=== PATIENT | female | born 1985 | race Two or more races ===

== ENCOUNTER 2024-09-20 11:18 | Emergency (ER) | payer BC, SELFPAY ==
[2024-09-20 11:33] VITALS: BP 128/81; PULSE 83; RESP 20; TEMP 36.6; O2SAT 99
[2024-09-20 12:35] VITALS: PULSE 108; RESP 20; O2SAT 100; BMI 21.9
--- NOTE | 2024-09-20 12:38 | EDNOTE_ITS ---
ED General RME/HPI General Stated complaint: ANXIETY Time Seen by Provider: 09/20/24 12:20 Arrival date/time: 09/20/24 11:18 RME / HPI RME / HPI narrative: 39-year-old female patient with significant history of anxiety in the past, at least 3 years now, currently taking Lexapro Wellbutrin and Valium, came in for evaluation regarding worsening panic attack. Onset of symptoms about 10 AM this morning, described as hyperventilation, panicky, muscle spasm carpopedal spasm, bilateral, severity moderate. Patient took her Valium with no relief. Patient denies any homicidal or suicidal ideation. Related Data Home Medications ?Medication ?Instructions ?Recorded ?Confirmed escitalopram oxalate 10 mg tablet 20 mg PO QDAY 02/01/19 12/04/23 (Lexapro) bupropion HCl 150 mg 24 hr tablet, 150 mg PO QDAY 12/04/23 12/05/23 extended release dicyclomine 20 mg tablet 20 mg PO TID 12/04/23 12/04/23 Previous Rx's ?Medication ?Instructions ?Recorded pantoprazole 40 mg tablet,delayed 40 mg PO QDAY #30 tabs 12/05/23 release (Protonix) ondansetron HCl 4 mg tablet 4 mg PO Q8H PRN nausea and 09/20/24 vomiting 5 days #20 tabs Allergies Allergy/AdvReac Type Severity Reaction Status Date / Time No Known Allergies Allergy Verified 06/26/24 07:38 Review of Systems Review of Systems Narrative Review of Systems: Review of system reviewed and within normal limits except mentioned in HPI ED Exam Narrative Physical exam: VITAL SIGNS: Reviewed. GENERAL APPEARANCE: Alert and interactive, follows commands, no acute distress, anxious HEAD AND FACE: Non-traumatic. ENT: PERRL, pink conjunctivitis, eyelid no trauma, Mucous membrane moist. NECK: Supple, nontender, no nuchal rigidity. CHEST: No tenderness, no crepitus, no paradoxical movement, no retractions. LUNGS: Clear, well ventilated, symmetric, no rales, no wheezing, no ronchi, no stridor, good breath sounds bilaterally. HEART: Regular rate, regular rhythm, no murmur, no gallops. ABDOMEN: Soft, positive bowel sounds, nondistended, no guarding, nontender, no rebound, no masses, RECTAL: Deferred. GENITAL: Deferred. NEUROLOGICAL: Gross motor function intact sensory function intact, Appropriate for age. MUSCULOSKELETAL: low back nontender, full range of motion. EXTREMITIES: Carpopedal spasm noted bilateral SKIN: Color pink, dry, no rash, no lacerations, no abrasions, no contusions. LYMPHATICS: Deferred. Course Quality Measures none Orders Category Date Time Status EKG (ED ONLY) *Do not use* NOW Care 09/20/24 13:35 Completed EKG (ED Only) Stat Exams 09/20/24 13:35 Ordered CBC [CBC] Stat Lab 09/20/24 12:45 Completed CMP [Comprehensive Metabolic Panel] Stat Lab 09/20/24 12:45 Completed DiphenhydrAMINE [Benadryl] Med 09/20/24 12:37 Discontinued 50 mg PO X1 ONE Ketorolac Inj [Toradol Inj] Med 09/20/24 13:59 Discontinued 30 mg IM X1 ONE LORazepam [Ativan Inj] Med 09/20/24 12:37 Discontinued 1 mg IM X1 ONE Ondansetron Odt [Zofran Odt] Med 09/20/24 13:35 Discontinued 4 mg PO X1 ONE Ondansetron Odt [Zofran Odt] Med 09/20/24 14:03 Discontinued 4 mg PO X1 ONE Vital Signs Vital signs: Vital Signs Temperature 97.9 F 09/20/24 11:33 Pulse Rate 83 09/20/24 11:33 Respiratory Rate 20 09/20/24 11:33 Blood Pressure 128/81 09/20/24 11:33 Pulse Oximetry (%) 99 09/20/24 11:33 Oxygen Delivery Method Room Air 09/20/24 11:33 [facility] Patient data External records reviewed:: None Clinical information provided by:: patient Social determinants that could affect healthcare access:: none Patient has the following chronic illnesses:: History anxiety How is presenting disease/condition affected by chronic disease/condition?: e xacerbated by Evaluation data The following diagnostics were reviewed and interpreted by me:: lab results and EKG tracing(s) Lab and/or radiology exams considered but not ordered:: None Interpretation Summary: EKG as interpreted by me showed sinus rhythm, ventricular rate of 73 bpm, no ST segment elevation or depression noted. Patient's workup today came back unremarkable. Medications Medications considered but not ordered:: None Medication administrations:: Medication Administration History Discontinued Medications Diphenhydramine HCl (Diphenhydramine 25 Mg Capsule) 50 mg PO X1 ONE Stop: 09/20/24 12:38 Last Admin: 09/20/24 13:10 Dose: 50 mg Documented By: ZELDA Ketorolac Tromethamine (Ketorolac Inj 60 Mg/2 Ml Vial) 30 mg IM X1 ONE Stop: 09/20/24 14:00 Last Admin: 09/20/24 14:27 Dose: 30 mg Documented By: ZELDA Lorazepam (Lorazepam 2 Mg/Ml Vial) 1 mg IM X1 ONE Stop: 09/20/24 12:38 Last Admin: 09/20/24 13:10 Dose: 1 mg Documented By: ZELDA Ondansetron HCl (Ondansetron Odt 4 Mg Tabrap) 4 mg PO X1 ONE; Protocol Stop: 09/20/24 13:36 Last Admin: 09/20/24 14:29 Dose: Not Given Documented By: ZELDA Non-Admin Reason: Discontinued Ondansetron HCl (Ondansetron Odt 4 Mg Tabrap) 4 mg PO X1 ONE; Protocol Stop: 09/20/24 14:04 Last Admin: 09/20/24 14:27 Dose: 4 mg Documented By: ZELDA Ativan, Zofran, Toradol and Benadryl Consultations Consultation(s) initiated? (list below): No Diagnosis Differential Diagnosis ED Complaint MDM: Panic attack, hyperventilation, body aches Most likely diagnosis given after review of the tests above:: Panic attack, anxiety Admission Indicated Admission indicated?: not indicated Explain why admission is indicated or not indicated:: Stable Admission Request Was there a request for admission?: No Disposition Plan Disposition Plan: Discharge Discharge Attestation Discharge Attestation: The patient wasgiven an opportunity to ask questions and understood the discharge instructions. Discharge instructions specifically effects, indications for sooner follow up or return to the emergency department, and the expected course of current diagnosis. Patient condition: Stable Medical Decision Making MDM Narrative MDM Narrative: 39-year-old female patient with significant history of anxiety in the past, at least 3 years now, currently taking Lexapro Wellbutrin and Valium, came in for evaluation regarding worsening panic attack. Onset of symptoms about 10 AM this morning, described as hyperventilation, panicky, muscle spasm carpopedal spasm, bilateral, severity moderate. Patient took her Valium with no relief. Patient denies any homicidal or suicidal ideation. Patient was given Zofran, Toradol, and Ativan with complete resolution of symptoms. Patient's workup all came back unremarkable. EKG also came back unremarkable results discussed with the patient. Differential Diagnosis Differential Diagnosis: Panic attack, hyperventilation, body aches Lab Data 09/20/24 12:45 09/20/24 12:45 Labs: Lab Results 09/20/24 Range/Units 12:45 WBC 12.7 H (3.6-11.0) Thou/mm3 RBC 4.50 (4.00-5.20) Miln/mm3 Hgb 15.0 (12.0-16.0) g/dL Hct 41.1 (36.0-46.0) % MCV 91 (80-100) fL MCH 33.3 (25.0-35.0) pg MCHC 36.5 (31.0-37.0) g/dl RDW Std Deviation 40.7 (36.4-46.3) fL Plt Count 400 (140-440) Thou/mm3 Neut % (Auto) 90 H (37-80) % Lymph % (Auto) 6 L (10-50) % Orange % (Auto) 3 (0-12) % Eos % (Auto) 0 (0-10) % Baso % (Auto) 0 (0-2.5) % Neut # (Auto) 11.5 H (1.8-7.7) Thou/mm3 Lymph # (Auto) 0.8 L (1.0-4.8) Thou/mm3 Orange # (Auto) 0.4 (0.0-0.8) Thou/mm3 Eos # (Auto) 0.0 (0.0-0.5) Thou/mm3 Baso # (Auto) 0.0 (0.0-0.2) Thou/mm3 Immature Gran # (Auto) 0.04 H (0.00-0.00) Thou/mm3 Absolute Nucleated RBC 0.00 (0.00-0.00) Thou/mm3 Immature Gran % 0 (0-0) % Nucleated RBC % 0 (0) /100 WBC Sodium 138 (136-145) mMol/L Potassium 3.5 (3.4-5.1) mMol/L Chloride 105 (98-107) mMol/L Carbon Dioxide 15.6 L (20.0-31.0) mMol/L Anion Gap 17 H (7-16) BUN 11 (9-23) mg/dL Creatinine 0.8 (0.6-1.3) mg/dL Estim Creat Clear Calc Not Performed. eGFR > 60 (60 - ) See Note BUN/Creatinine Ratio 14 (12-20) Ratio Glucose 121 H (74-106) mg/dL Calculated Osmolality 276 (275-295) Calcium 9.8 (8.3-10.6) mg/dL Corrected Calcium 9.8 (8.5-10.1) mg/dL Total Bilirubin 1.0 (0.3-1.2) mg/dL AST 13 (0-34) U/L ALT 16 (10-49) U/L Alkaline Phosphatase 115 (46-116) U/L Total Protein 8.0 (5.7-8.2) gm/dL Albumin 5.0 (3.5-5.0) gm/dL Globulin 3.0 (2.3-3.5) gm/dL Albumin/Globulin Ratio 1.7 (1.2-2.2) Discharge Plan Plan Patient Disposition: HOME (Self Care) Disposition Comment: Stable Prescriptions/Referrals Prescriptions/Med Rec: New ondansetron HCl 4 mg tablet 4 mg PO Q8H PRN (Reason: nausea and vomiting) 5 Days Qty: 20 0RF No Action escitalopram oxalate [Lexapro] 10 mg Tablet 20 mg PO QDAY dicyclomine 20 mg tablet 20 mg PO TID Patient Comments: TAKE 1 TABLET BY MOUTH 3 TIMES A DAY BEFORE MEALS bupropion HCl 150 mg tablet extended release 24 hr 150 mg PO QDAY Patient Comments: TAKE 1 TABLET BY MOUTH EVERY DAY pantoprazole [Protonix] 40 mg Tablet,Delayed Release (Dr/Ec) 40 mg PO QDAY Qty: 30 2RF Rx Instructions: TAKE ONE TABLET ONCE DAILY FOR 30 DAYS Referrals: Velasquez Dyer MD [Primary Care Provider] - In 1 week Problem List Clinical Impression: Anxiety Patient/Caregiver Discharge Instructions Discharge Activity: activity as tolerated Education Materials: Understanding Anxiety Disorders Additional Instructions: Thank you for the opportunity for serving you today. You are stable for discharged . You are advised to: Follow-up with your PCP in 1 to 2 days Return to ED for worsening of symptoms Increase oral fluids Take medication as prescribed by your PCP Print Language: Bruneian Stand Alone Forms: Yelena Award Info., Patient Portal Info Letter PA/QUALITY CONTROL SPECIALIST Supervising Physician SONU/CAMILLA Supervising Physician: MD preethi
[2024-09-20 12:57] LABS: Basophils % (Auto) 0 % (0-2.5); Eosinophils % (Auto) 0 % (0-10); Hematocrit 41.1 % (36.0-46.0); Immature Granulocytes % (Auto) 0 % (0-0); Immature Granulocytes Auto 0.04 Thou/mm3 (0.00-0.00); Lymphocytes # (Auto) 0.8 Thou/mm3 (1.0-4.8); Lymphocytes % (Auto) 6 % (10-50); Mean Corpuscular HGB Conc 36.5 g/dl (31.0-37.0); Mean Corpuscular Hemoglobin 33.3 pg (25.0-35.0); Mean Corpuscular Volume 91 fL (80-100); Monocytes # (Auto) 0.4 Thou/mm3 (0.0-0.8); Monocytes % (Auto) 3 % (0-12); Neutrophils # (Auto) 11.5 Thou/mm3 (1.8-7.7); Neutrophils % (Auto) 90 % (37-80); Nucleated Red Blood Cell % 0 /100 WBC (0); Platelet Count 400 Thou/mm3 (140-440); RDW Standard Deviation 40.7 fL (36.4-46.3); White Blood Count 12.7 Thou/mm3 (3.6-11.0)
[2024-09-20] MEDS: DiphenhydrAMINE 25 MG CAPSULE 50 MG PO (13:10)
[2024-09-20] MEDS: LORazepam 2 MG/ML VIAL 1 MG IM (13:10)
[2024-09-20 13:16] LABS: Alanine Aminotransferase 16 U/L (10-49); Albumin/Globulin Ratio 1.7 (1.2-2.2); Alkaline Phosphatase 115 U/L (46-116); Anion Gap 17 (7-16); Aspartate Amino Transferase 13 U/L (0-34); BUN/Creatinine Ratio 14 Ratio (12-20); Blood Urea Nitrogen 11 mg/dL (9-23); Calcium 9.8 mg/dL (8.3-10.6); Calcium (Corrected) 9.8 mg/dL (8.5-10.1); Carbon Dioxide 15.6 mMol/L (20.0-31.0); Chloride 105 mMol/L (98-107); Creatinine (Component) 0.8 mg/dL (0.6-1.3); Glucose 121 mg/dL (74-106); Osmolality,Calculated 276 (275-295); Potassium 3.5 mMol/L (3.4-5.1); Sodium 138 mMol/L (136-145); eGFR > 60 See Note
[2024-09-20] MEDS: ONDANSETRON ODT 4 MG TABRAP PO (14:27)
[2024-09-20] MEDS: KETOROLAC INJ 60 MG/2 ML VIAL 30 MG IM (14:27)
[2024-09-20 14:54] VITALS: BP 135/81; PULSE 73; RESP 20; TEMP 36.5; O2SAT 100
[2024-09-20] MEDS: MORPHINE SULF INJ 10 MG/ML VIAL 5 MG IM (15:16)
== END 2024-09-20 15:35 | disposition home or self-care (01) ==
PROVIDERS: Nurse Practitioner Family; Emergency Provider Emergency Medicine; PCP Family Medicine
DX: F41.9 Anxiety disorder, unspecified (principal); I49.3 Ventricular premature depolarization
CPT/HCPCS: 36415; 80053; 85025; 93005; 96372; 99283; J1885; J2060; J2270; Q0162; A9270

== ENCOUNTER 2024-11-01 17:38 | Emergency (ER) | payer BC, SELFPAY ==
[2024-11-01 17:43] VITALS: BP 144/88; PULSE 87; RESP 20; TEMP 36.6; O2SAT 100; BMI 23.0
[2024-11-01] MEDS: ONDANSETRON INJ 2 MG/ML INJ 2 ML 4 MG IV (18:29)
--- NOTE | 2024-11-01 18:39 | EKG_ITS ---
[facility] Test Date: 2024-11-01 Pat Name: BETHEL TANNER Department: Room: - Gender: Female Credit And Collections Analyst: : 1985 Requested By: Viry Wyatt Order Number: [id number] Reading MD: Viry Wyatt Measurements Intervals [place] Rate: 96 P: 70 [place]: 122 QRS: 40 QRSD: 87 T: -3 QT: 412 QTc: 521 Interpretive Statements SINUS RHYTHM WITH SINUS ARRHYTHMIA MODERATE T-WAVE ABNORMALITY, CONSIDER ANTERIOR ISCHEMIA [-0.1+ mV T WAVE IN V3/V4] Compared to ECG 04/27/2023 05:30:37 No significant changes /store/S0/[id number]/ecg/[id number].pdf
[2024-11-01] MEDS: HALOPERIDOL LACT INJ 5 MG/ML VIAL IM (18:47)
[2024-11-01] MEDS: DiphenhydrAMINE INJ 50 MG/ML VIAL IVP (18:48)
--- NOTE | 2024-11-01 18:54 | PD.EDSEIZ ---
ED Seizures RME/HPI General Chief Complaint: Seizure Stated Complaint: SEIZURE Time Seen by Provider: 11/01/24 18:44 Arrival date/time: 11/01/24 17:38 Related Data Home Medications ?Medication ?Instructions ?Recorded ?Confirmed escitalopram oxalate 10 mg tablet 20 mg PO QDAY 02/01/19 12/04/23 (Lexapro) bupropion HCl 150 mg 24 hr tablet, 150 mg PO QDAY 12/04/23 12/05/23 extended release dicyclomine 20 mg tablet 20 mg PO TID 12/04/23 12/04/23 Previous Rx's ?Medication ?Instructions ?Recorded pantoprazole 40 mg tablet,delayed 40 mg PO QDAY #30 tabs 12/05/23 release (Protonix) Allergies Allergy/AdvReac Type Severity Reaction Status Date / Time No Known Allergies Allergy Verified 06/26/24 07:38 Course Orders Category Date Time Status EKG (ED ONLY) *Do not use* NOW Care 11/01/24 18:41 Completed EKG (ED Only) Stat Exams 11/01/24 18:39 Ordered CBC Stat Lab 11/01/24 18:40 Ordered CMP [Comprehensive Metabolic Panel] Stat Lab 11/01/24 18:40 Ordered Lipase Stat Lab 11/01/24 18:40 Ordered UA, C/S IF [Urinalysis, C/S if Indicated] Stat Lab 11/01/24 18:40 Ordered DiphenhydrAMINE INJ [Benadryl Inj] Med 11/01/24 18:42 Discontinued 50 mg IVP X1 ONE Haloperidol Lactate [Haldol Inj] Med 11/01/24 18:42 Discontinued 5 mg IM X1 ONE Ondansetron Inj [Zofran Inj] Med 11/01/24 18:23 Discontinued 4 mg IV X1 ONE Vital Signs Vital signs: Vital Signs Temperature 97.8 F 11/01/24 17:43 Pulse Rate 87 11/01/24 17:43 Respiratory Rate 20 11/01/24 17:43 Blood Pressure 144/88 H 11/01/24 17:43 Pulse Oximetry (%) 100 11/01/24 17:43 Oxygen Delivery Method Room Air 11/01/24 17:43 Seizure Medications / Prescriptions Medication administrations:: Medication Administration History Discontinued Medications Diphenhydramine HCl (Diphenhydramine Inj 50 Mg/Ml Vial) 50 mg IVP X1 ONE Stop: 11/01/24 18:43 Last Admin: 11/01/24 18:48 Dose: 50 mg Documented By: DEJA Haloperidol Lactate (Haloperidol Lact Inj 5 Mg/Ml Vial) 5 mg IM X1 ONE Stop: 11/01/24 18:43 Last Admin: 11/01/24 18:47 Dose: 5 mg Documented By: DEJA Ondansetron HCl (Ondansetron Inj 2 Mg/Ml Inj 2 Ml) 4 mg IV X1 ONE; Protocol Stop: 11/01/24 18:24 Last Admin: 11/01/24 18:29 Dose: 4 mg Documented By: DEJA Discharge Plan Prescriptions/Referrals Prescriptions/Med Rec: No Action escitalopram oxalate [Lexapro] 10 mg Tablet 20 mg PO QDAY dicyclomine 20 mg tablet 20 mg PO TID Patient Comments: TAKE 1 TABLET BY MOUTH 3 TIMES A DAY BEFORE MEALS bupropion HCl 150 mg tablet extended release 24 hr 150 mg PO QDAY Patient Comments: TAKE 1 TABLET BY MOUTH EVERY DAY pantoprazole [Protonix] 40 mg Tablet,Delayed Release (Dr/Ec) 40 mg PO QDAY Qty: 30 2RF Rx Instructions: TAKE ONE TABLET ONCE DAILY FOR 30 DAYS Patient/Caregiver Discharge Instructions Print Language: Turkmen
[2024-11-01 19:15] LABS: Basophils # (Auto) 0.1 Thou/mm3 (0.0-0.2); Basophils % (Auto) 0 % (0-2.5); Eosinophils % (Auto) 0 % (0-10); Hematocrit 40.7 % (36.0-46.0); Hemoglobin 14.6 g/dL (12.0-16.0); Immature Granulocytes % (Auto) 0 % (0-0); Immature Granulocytes Auto 0.07 Thou/mm3 (0.00-0.00); Lymphocytes # (Auto) 0.9 Thou/mm3 (1.0-4.8); Lymphocytes % (Auto) 6 % (10-50); Mean Corpuscular HGB Conc 35.9 g/dl (31.0-37.0); Mean Corpuscular Hemoglobin 32.6 pg (25.0-35.0); Mean Corpuscular Volume 91 fL (80-100); Monocytes # (Auto) 0.4 Thou/mm3 (0.0-0.8); Monocytes % (Auto) 3 % (0-12); Neutrophils # (Auto) 14.6 Thou/mm3 (1.8-7.7); Neutrophils % (Auto) 91 % (37-80); Nucleated Red Blood Cell % 0 /100 WBC (0); Platelet Count 390 Thou/mm3 (140-440); RDW Standard Deviation 40.9 fL (36.4-46.3); Red Blood Count 4.48 Miln/mm3 (4.00-5.20)
[2024-11-01 19:31] LABS: Alanine Aminotransferase 31 U/L (10-49); Albumin, Serum 5.1 gm/dL (3.5-5.0); Albumin/Globulin Ratio 1.8 (1.2-2.2); Alkaline Phosphatase 113 U/L (46-116); Anion Gap 20 (7-16); Aspartate Amino Transferase 23 U/L (0-34); BUN/Creatinine Ratio 11 Ratio (12-20); Blood Urea Nitrogen 10 mg/dL (9-23); Calcium 10.6 mg/dL (8.3-10.6); Calcium (Corrected) 10.6 mg/dL (8.5-10.1); Carbon Dioxide 15.3 mMol/L (20.0-31.0); Chloride 102 mMol/L (98-107); Creatinine (Component) 0.9 mg/dL (0.6-1.3); Estimated Creatinine Clearance 70.8 mL/min (>60); Globulin 2.9 gm/dL (2.3-3.5); Glucose 137 mg/dL (74-106); Lipase 29 U/L (12-53); Osmolality,Calculated 274 (275-295); Potassium 3.8 mMol/L (3.4-5.1); Sodium 137 mMol/L (136-145); eGFR > 60 See Note
--- NOTE | 2024-11-01 19:57 | PD.EDPSYCH ---
ED Psych RME/HPI General Chief Complaint: Seizure Stated Complaint: SEIZURE Time Seen by Provider: 11/01/24 18:44 Source: patient Arrival date/time: 11/01/24 17:38 Mode of arrival: ambulatory Limitations: no limitations RME / HPI RME / HPI Narrative: DR FUENTES MAIN ED EVALUATION: 39 yo female patient with a h/o anxiety appearing agitated and threatening, If you don't give me medication right now I'm going to go crazy! Tachypneic with hyperventilating but she is redirectable. Complains of anxiety which started at work around 1pm. States she took two doses of Valium 5mg without improvement. Complains of feeling body spasms and pain all over my body . Also c/o vomiting x 1 followed by some dry heaves. Denies drug use however when asked specifically about marijuana she states not today . Demanding medication right now to calm down and pain medication for pain all over her body. Patient is able to be directed to slow her breathing which appears to improve her symptoms. Related Data Home Medications ?Medication ?Instructions ?Recorded ?Confirmed escitalopram oxalate 10 mg tablet 20 mg PO QDAY 02/01/19 12/04/23 (Lexapro) bupropion HCl 150 mg 24 hr tablet, 150 mg PO QDAY 12/04/23 12/05/23 extended release dicyclomine 20 mg tablet 20 mg PO TID 12/04/23 12/04/23 Previous Rx's ?Medication ?Instructions ?Recorded pantoprazole 40 mg tablet,delayed 40 mg PO QDAY #30 tabs 12/05/23 release (Protonix) Allergies Allergy/AdvReac Type Severity Reaction Status Date / Time No Known Allergies Allergy Verified 06/26/24 07:38 Review of Systems Review of Systems Systems Reviewed: All systems reviewed, normal except as documented Past Medical History Past Medical History NEUROLOGIC: Positive Neurological Disorders, Migraine and Head Trauma; Negative Seizures CARDIAC: Positive Cardiac Disorders; Negative Congestive Heart Failure or Hypertension RESPIRATORY: Positive Pneumonia; Negative Chronic Obstructive Pulmonary Disease (COPD) or Asthma GASTROINTESTINAL: Positive Gastrointestinal Disorders and Gall Bladder Disease GENITOURINARY: Negative Genitourinary Disorders or Renal Disease REPRODUCTIVE: Positive Endometriosis and Previous Pregnancies; Negative Breast Cancer MUSCULOSKELETAL: Positive Musculoskeletal Disorders ENT: Positive Head Trauma ENDOCRINE: Negative Endocrine Disorders, Diabetes Mellitus Type 1 or Diabetes Mellitus Type 2 HEMATOLOGIC: Negative Blood Disorders, Anemia, Sickle Cell Disease or Clotting Problems PSYCHO/SOCIAL: Positive Depression, Anxiety and Depression OTHER HISTORY: Positive Hospitalization and Chicken Pox; Negative Autoimmune Disease, Shingles, Falls, Blood Transfusions, Anesthesia Reactions, Chemotherapy, Radiation Therapy, MRSA, Human Immunodeficiency Virus (HIV), Measles, Mumps, Rubella (British Measles), Pertussis, Cancer or Breast Cancer Family History FAMILY HISTORY: Positive Family Psychiatric Problems and Family Surgery; Negative Family Respiratory Disorders, Family Cardiac Disorders, Family Gastrointestinal Problems, Family Cancer or Family Anesthesia Reaction Surgical History SURGICAL: Positive Tubal Ligation and Section Social History SMOKING STATUS: Never smoker ED Exam Narrative Physical exam: GENERAL APPEARANCE: alert and oriented x 4, well-developed, well-nourished, no acute distress, VITALS: All vitals were reviewed and the pulse ox is 100% on room air, which is normal according to my interpretation. HEENT: Normocephalic, atraumatic; pupils equal, round, reactive to light; EOMI; mucous membranes pink, moist; oropharynx clear NECK: Supple LUNGS: CTABL; no wheezes, no rales, no rhonchi, tachypneic and hyperventilating but redirectable. HEART: Regular rate, regular rhythm; normal S1, S2; no murmurs ABDOMEN: non distended; normal BS; soft, no tenderness, no guarding, no rebound; no masses, no organomegaly, no hernia BACK: no CVA tenderness EXTREMITIES: atraumatic; no edema NEUROLOGIC: awake; alert and oriented x4; cranial nerves II-XII grossly intact; no focal sensory or motor deficits PSYCHIATRIC: appropriate mood and affect SKIN: warm, dry, normal color; no rashes General Limitations: Present no limitations Course Quality Measures none Orders Category Date Time Status EKG (ED ONLY) *Do not use* NOW Care 11/01/24 18:41 Completed EKG (ED Only) Stat Exams 11/01/24 18:39 Draft Alcohol, Blood Medical Stat Lab 11/01/24 18:30 Completed CBC Stat Lab 11/01/24 18:30 Completed CMP [Comprehensive Metabolic Panel] Stat Lab 11/01/24 18:30 Completed Drug Screen,Urine Stat Lab 11/01/24 19:55 Completed HCG Qualitative,Urine Stat Lab 11/01/24 19:55 Completed Lipase Stat Lab 11/01/24 18:30 Completed UA, C/S IF [Urinalysis, C/S if Indicated] Stat Lab 11/01/24 19:55 Completed DiphenhydrAMINE INJ [Benadryl Inj] Med 11/01/24 18:42 Discontinued 50 mg IVP X1 ONE Haloperidol Lactate [Haldol Inj] Med 11/01/24 18:42 Discontinued 5 mg IM X1 ONE Ondansetron Inj [Zofran Inj] Med 11/01/24 18:23 Discontinued 4 mg IV X1 ONE Sodium Chloride 0.9% 1000 ml [Ns] 1,000 ml Med 11/01/24 19:53 Discontinued IV 999 mls/hr Vital Signs Vital signs: Vital Signs Temperature 97.8 F 11/01/24 17:43 Pulse Rate 87 11/01/24 17:43 Respiratory Rate 20 11/01/24 17:43 Blood Pressure 144/88 H 11/01/24 17:43 Pulse Oximetry (%) 100 11/01/24 17:43 Oxygen Delivery Method Room Air 11/01/24 17:43 Psych MDM Narrative MDM Narrative:: 2030 Patient eloped Scribe Attestation: I, Rick Serra am scribing for and in the presence of Dr. Fuentes. Provider Notation: Although this document has been carefully reviewed, there may still be some phonetic and other typographical errors. These errors are purely grammatical due to imperfections in the software program and should not be construed in any way to compromise the substance of the patient's medical care during this visit. Patient data External records reviewed:: [facility] previous records Clinical information provided by:: patient Social determinants that could affect healthcare access:: mental health Patient has the following chronic illnesses:: see PMH How is presenting disease/condition affected by chronic disease/condition?: uneffected by Evaluation data The following diagnostics were reviewed and interpreted by me:: lab results and EKG tracing(s) Lab and/or radiology exams considered but not ordered:: na Interpretation Summary: At 18:57 on November 01, 2024, the EKG demonstrated a sinus rhythm with sinus arrhythmia, a heart rate of 96 bpm, a QTc of 521 ms, and a QRS duration of 40 ms, with no evidence of STEMI, according to my interpretation. Medications / Prescriptions Medications or Prescriptions considered but not ordered:: na Medication administrations:: Medication Administration History Discontinued Medications Diphenhydramine HCl (Diphenhydramine Inj 50 Mg/Ml Vial) 50 mg IVP X1 ONE Stop: 11/01/24 18:43 Last Admin: 11/01/24 18:48 Dose: 50 mg Documented By: DEJA Haloperidol Lactate (Haloperidol Lact Inj 5 Mg/Ml Vial) 5 mg IM X1 ONE Stop: 11/01/24 18:43 Last Admin: 11/01/24 18:47 Dose: 5 mg Documented By: DEJA Sodium Chloride (Ns) 1,000 mls @ 999 mls/hr IV .Q1H1M ONE Stop: 11/01/24 20:53 Last Admin: 11/01/24 21:08 Dose: Not Given Documented By: JINNY Non-Admin Reason: Other, see note Ondansetron HCl (Ondansetron Inj 2 Mg/Ml Inj 2 Ml) 4 mg IV X1 ONE; Protocol Stop: 11/01/24 18:24 Last Admin: 11/01/24 18:29 Dose: 4 mg Documented By: DEJA as above, if any Consultations Consultation(s) initiated? (list below): No Diagnosis Psych Differential Diagnosis: bipolar disorder, depression and acute anxiety Most likely diagnosis given after review of the tests above:: Anxiety Admission Indicated Admission indicated?: not indicated Admission Request Was there a request for admission?: No Disposition Plan Disposition Plan: other (specify) (Eloped) Discharge Plan Plan Patient Disposition: Elopement Prescriptions/Referrals Prescriptions/Med Rec: No Action escitalopram oxalate [Lexapro] 10 mg Tablet 20 mg PO QDAY dicyclomine 20 mg tablet 20 mg PO TID Patient Comments: TAKE 1 TABLET BY MOUTH 3 TIMES A DAY BEFORE MEALS bupropion HCl 150 mg tablet extended release 24 hr 150 mg PO QDAY Patient Comments: TAKE 1 TABLET BY MOUTH EVERY DAY pantoprazole [Protonix] 40 mg Tablet,Delayed Release (Dr/Ec) 40 mg PO QDAY Qty: 30 2RF Rx Instructions: TAKE ONE TABLET ONCE DAILY FOR 30 DAYS Referrals: Velasquez Dyer MD [Primary Care Provider] - In 1 week Problem List Clinical Impression: Anxiety Patient/Caregiver Discharge Instructions Print Language: Ecuadorean
--- NOTE | 2024-11-01 20:00 | PC.NURSE ---
Pt yelling from room i want some nausea meds , Shannon Prasad went into room, Pt yelled at Rn Shanice demanding meds. Rn Shanice informed pt that she had just received medications 1 hr prior but that she would let Provider vicki and primary Rn know. provider sadaf was informed. no new order were given at that time. While Primary RN Kaela was in another room, security informed financial underwriter that pt was in [facility]. Client Application Support Engineer went out to [facility] to speak to pt, and pt stated she was leaving and no longer wanted to be seen. I asked pt to walk into a room with me so that i can remove her iv from arm, and pt lifed her sleeves and showed financial underwriter she had pulled put her IV. Pt refuse to talk to RN after that and rushed out while shaking her head out of er waiting room. provider sadaf and charge nurse stephanie made aware.
[2024-11-01 20:23] LABS: Collection Type, Urine Clean Catch
[2024-11-01 20:41] LABS: HCG Qualitative,Urine Negative
[2024-11-01 20:50] LABS: Alcohol, Blood Medical < 3.0 mg/dL (0-10.0)
[2024-11-01 20:58] LABS: Bacteria,Urine Rare; Bilirubin,Urine Negative (Negative); Blood,Urine 1+ (Negative); Clarity,Urine Clear (Clear/Hazy); Color,Urine Yellow (Lt Yel-Yel); Culture Indicated,Urine Not Indicated; Glucose, Urine Negative (Negative); Ketones,Urine 4+ (Negative); Leukocyte Esterase,Urine Negative (Negative); Nitrite,Urine Negative (Negative); PH,Urine 6.5 (5.0-7.0); Protein,Urine Trace (Neg - Trace); RBC,Urine 5 /hpf (0-3); Specific Gravity,Urine 1.024 (1.001-1.035); Squamous Epithelial Cell,Urine 5 /hpf (0-5); WBC,Urine 1 /hpf (0-5)
[2024-11-01 21:01] LABS: Amphetamine/Methamp Scrn,U Negative (Negative); Barbiturate Screen,Urine Negative (Negative); Benzodiazepines Screen,Urine Positive (Negative); Benzoylecgonine Screen, Ur Negative (Negative); Fentanyl Screen,Urine Negative (Negative); Opiate Screen,Urine Negative (Negative); THC Screen,Urine Positive (Negative)
== END 2024-11-01 20:30 | disposition left against medical advice (07) ==
PROVIDERS: Emergency Provider Emergency Medicine; PCP Family Medicine
DX: F41.9 Anxiety disorder, unspecified (principal); Z53.29 Procedure and treatment not carried out because of patient's decision for other reasons; R11.10 Vomiting, unspecified
CPT/HCPCS: 36415; 80053; 80307; 80320; 81001; 81025; 83690; 85025; 93005; 96372; 96374; 96375; 99284; J1200; J1630; J2405; G0480

== ENCOUNTER 2024-11-27 12:18 | Emergency (ER) | payer BC, SELFPAY ==
[2024-11-27 12:20] VITALS: PULSE 96; RESP 16; O2SAT 97; BMI 23.9
--- NOTE | 2024-11-27 12:20 | PD.EDSEIZ ---
ED Seizures RME/HPI General Chief Complaint: Seizure Stated Complaint: SEIZURE Time Seen by Provider: 11/27/24 12:35 Arrival date/time: 11/27/24 12:18 Limitations: no limitations RME / HPI RME / HPI Narrative: 39 year old female with history of depression, anxiety presents to the ED BIBA from home for evaluation of seizures and possible overdose today. Per medics, patient reported feeling unwell, anxious, and has had difficulty sleeping for several days. States she has a prescription for Valium 1 pill BID however today admitted to taking 4 pills. Medics state on their arrival patient was awake, answering questions, and GCS of 15. Shortly after began seizing and had 4 back to back, lasting only a few seconds each. Was given a total of 0.8mg Versed. Prehospital BS 138. On arrival to the ED patient presented with acute seizures and was seizing when I walked in but was not in any kind of clonic position. WE informed the patient she would have a catheter placed and she began speaking full sentences and provided full history. No other associated symptoms or complaints reported. Denies any recent illness. Social hx: THC gummies, alcohol, no smoke tobacco Related Data Home Medications ?Medication ?Instructions ?Recorded ?Confirmed escitalopram oxalate 10 mg tablet 20 mg PO QDAY 02/01/19 12/04/23 (Lexapro) bupropion HCl 150 mg 24 hr tablet, 150 mg PO QDAY 12/04/23 12/05/23 extended release dicyclomine 20 mg tablet 20 mg PO TID 12/04/23 12/04/23 Previous Rx's ?Medication ?Instructions ?Recorded pantoprazole 40 mg tablet,delayed 40 mg PO QDAY #30 tabs 12/05/23 release (Protonix) Allergies Allergy/AdvReac Type Severity Reaction Status Date / Time No Known Allergies Allergy Verified 11/27/24 12:27 Review of Systems Review of Systems Narrative Review of Systems: GEN: No fever, no chills, no weight loss EYES: No discharge, no visual changes, no pain HEENT: No ear pain, no congestion, no sore throat PULM: No shortness of breath, no cough, no congestion CV: No chest pain, no dyspnea on exertion, no palpitations GI: No nausea, no vomiting, no diarrhea, no pain, no constipation : No frequency, no urgency, no dysuria MUSC/SKEL: No joint pain, no back pain SKIN: No rash PSYCH: +anxiety. No hallucinations, no depression HEME/LYMPH: No easy bleeding or bruising tendencies NEURO: +seizures per medics. No weakness, no headache Past Medical History Past Medical History NEUROLOGIC: Positive Neurological Disorders, Migraine and Head Trauma CARDIAC: Positive Cardiac Disorders RESPIRATORY: Positive Pneumonia GASTROINTESTINAL: Positive Gastrointestinal Disorders and Gall Bladder Disease REPRODUCTIVE: Positive Endometriosis and Previous Pregnancies MUSCULOSKELETAL: Positive Musculoskeletal Disorders ENT: Positive Head Trauma PSYCHO/SOCIAL: Positive Depression, Anxiety and Depression OTHER HISTORY: Positive Hospitalization and Chicken Pox Family History FAMILY HISTORY: Positive Family Psychiatric Problems and Family Surgery Surgical History SURGICAL: Positive Tubal Ligation and Section Social History SMOKING STATUS: Never smoker ED Exam General Limitations: Present no limitations General appearance: Present other (Patient presented having a seizure and when I walked in the patient was not in any kind of clonic position. When I opened her eyelids she looked straight ahead at me and then straight down. We informed the patient we would place a cath and she began speaking and gave a full history. ) Head Head exam: Present atraumatic, normocephalic and normal inspection Eye Eye exam: Present normal appearance, PERRL and EOMI ENT ENT exam: Present normal exam, normal oropharynx and mucous membranes moist Neck Neck exam: Present normal inspection, full ROM and trachea midline Chest Chest inspection: Present normal inspection and symmetric chest wall rise Respiratory Respiratory exam: Present normal lung sounds bilaterally Cardiovascular Cardiovascular exam: Present regular rate, normal rhythm and normal heart sounds Abdominal Exam Abdominal exam: Present soft and normal bowel sounds Extremities Exam Extremities exam: Present normal inspection and full ROM Back Exam Back exam: Present normal inspection and full ROM Neurological Exam Neurological exam: Present alert, oriented X3 and CN II-XII intact Psychiatric Psychiatric exam: Present normal affect and normal mood Skin Skin exam: Present warm, dry, intact and normal color Course Quality Measures none Orders Category Date Time Status Bedside Blood Glucose STAT Care 11/27/24 12:39 Active Mine Laborer Q4H START 00 Care 11/27/24 12:38 Active Continuous Pulse Oximetry NOW Care 11/27/24 12:38 Completed EKG (ED ONLY) *Do not use* NOW Care 11/27/24 12:35 Completed In and Out Catheter X1 Care 11/27/24 12:30 Completed Insert IV STAT Care 11/27/24 12:39 Active EKG (ED Only) Stat Exams 11/27/24 12:35 Draft CBC Stat Lab 11/27/24 12:25 Completed CMP [Comprehensive Metabolic Panel] Stat Lab 11/27/24 13:20 Completed Drug Screen,Urine Stat Lab 11/27/24 12:30 Completed Magnesium Stat Lab 11/27/24 13:20 Completed Urinalysis Stat Lab 11/27/24 12:30 Completed Acetaminophen Ivpb [Ofirmev Inj] Med 11/27/24 15:56 Active 1,000 mg in 100 ml IV X1 Ketorolac Inj [Toradol Inj] Med 11/27/24 14:33 Discontinued 30 mg IVP X1 ONE LORazepam [Ativan Inj] Med 11/27/24 12:16 Discontinued 2 mg .ROUTE .STK-MED ONE LORazepam [Ativan Inj] Med 11/27/24 12:25 Discontinued 2 mg IVP X1 ONE LORazepam [Ativan Inj] Med 11/27/24 15:54 Discontinued 2 mg IVP X1 ONE Ondansetron Inj [Zofran Inj] Med 11/27/24 13:37 Discontinued 4 mg IV X1 ONE Potassium Chloride [K-Dur] Med 11/27/24 16:02 Discontinued 40 meq PO X1 ONE Sodium Chloride 0.9% 1000 ml [Ns] 1,000 ml Med 11/27/24 12:38 Discontinued IV 999 mls/hr levETIRAcetam INJ [Keppra Inj] Med 11/27/24 12:38 Discontinued 1,000 mg IVP X1 ONE Reevaluation(s) Reevaluation #1: I spoke with the patient and daughter. We reviewed all the results, analysis, and treatment plans. Time: 15:40 Vital Signs Vital signs: Vital Signs Temperature 97.5 F 11/27/24 12:29 Pulse Rate 66 11/27/24 12:29 Respiratory Rate 18 11/27/24 12:29 Blood Pressure 136/73 H 11/27/24 12:29 Pulse Oximetry (%) 100 11/27/24 12:29 Oxygen Delivery Method Oxy Mask 11/27/24 12:29 Oxygen Flow Rate 3 11/27/24 12:29 Pulse ox is 95% on room air which is adequate. Seizure MDM Narrative MDM Narrative:: [place] Bain am scribing for and in the presence of Dr. Rush. Patient data External records reviewed:: [facility] previous records (I reviewed ED visit on 11/01/2024 for anxiety ) and EMS form Clinical information provided by:: patient and EMS Social determinants that could affect healthcare access:: mental health Patient has the following chronic illnesses:: Anxiety, depression How is presenting disease/condition affected by chronic disease/condition?: exacerbated by Evaluation data The following diagnostics were reviewed and interpreted by me:: lab results and EKG tracing(s) (Sinus rhythm with sinus arrhythmia, rate 69, nonspecific T-wave abnormality, no EKG abnormalities. ) Lab and/or radiology exams considered but not ordered:: None Interpretation Summary: Utox positive for marijuana Medications / Prescriptions Medications or Prescriptions considered but not ordered:: None Medication administrations:: Medication Administration History Acetaminophen (Ofirmev Inj) 1,000 mg in 100 mls @ 250 mls/hr IV X1 ONE Stop: 11/27/24 16:19 Discontinued Medications Sodium Chloride (Ns) 1,000 mls @ 999 mls/hr IV .Q1H1M ONE Stop: 11/27/24 13:38 Last Infusion: 11/27/24 15:27 Dose: Infused Documented By: Admin: 11/27/24 13:17 Dose: 999 mls/hr Documented By: MYRON Ketorolac Tromethamine (Ketorolac Inj 30 Mg/Ml Vial) 30 mg IVP X1 ONE Stop: 11/27/24 14:34 Last Admin: 11/27/24 14:45 Dose: 30 mg Documented By: MYRON Levetiracetam (Levetiracetam Inj 100 Mg/Ml Vial 5ml) 1,000 mg IVP X1 ONE Stop: 11/27/24 12:39 Last Admin: 11/27/24 13:22 Dose: 1,000 mg Documented By: MYRON Lorazepam (Lorazepam 2 Mg/Ml Vial) 2 mg IVP X1 ONE Stop: 11/27/24 12:26 Last Admin: 11/27/24 12:26 Dose: 2 mg Documented By: MYRON Lorazepam (Lorazepam 2 Mg/Ml Vial) Confirm Administered Dose 2 mg .ROUTE .STK-MED ONE Stop: 11/27/24 12:17 Last Admin: 11/27/24 13:17 Dose: Not Given Documented By: MYRON Non-Admin Reason: Duplicate Medication on eMAR Lorazepam (Lorazepam 2 Mg/Ml Vial) 2 mg IVP X1 ONE Stop: 11/27/24 15:55 Ondansetron HCl (Ondansetron Inj 2 Mg/Ml Inj 2 Ml) 4 mg IV X1 ONE; Protocol Stop: 11/27/24 13:38 Last Admin: 11/27/24 14:19 Dose: 4 mg Documented By: MYRON Potassium Chloride (Potassium Chloride 20 Meq Tabcr) 40 meq PO X1 ONE Stop: 11/27/24 16:03 See above Consultations Consultation(s) initiated? (list below): No Diagnosis Seizure Differential Diagnosis: new onset seizure, epileptic seizure, status epilepticus and other (pseudo seizures ) Most likely diagnosis given after review of the tests above:: pseudoseizure anxiety musculoskeletal pain hyperventilating Admission Indicated Admission indicated?: not indicated Admission Request Was there a request for admission?: No Disposition Plan Disposition Plan: Discharge Discharge Attestation Discharge Attestation: The patient and all family members were given an opportunity to ask questions and understood the discharge instructions. Discharge instructions specifically effects, indications for sooner follow up or return to the emergency department, and the expected course of current diagnosis. Patient condition: Stable Discharge Plan Plan Patient Disposition: HOME (Self Care) Prescriptions/Referrals Prescriptions/Med Rec: No Action escitalopram oxalate [Lexapro] 10 mg Tablet 20 mg PO QDAY dicyclomine 20 mg tablet 20 mg PO TID Patient Comments: TAKE 1 TABLET BY MOUTH 3 TIMES A DAY BEFORE MEALS bupropion HCl 150 mg tablet extended release 24 hr 150 mg PO QDAY Patient Comments: TAKE 1 TABLET BY MOUTH EVERY DAY pantoprazole [Protonix] 40 mg Tablet,Delayed Release (Dr/Ec) 40 mg PO QDAY Qty: 30 2RF Rx Instructions: TAKE ONE TABLET ONCE DAILY FOR 30 DAYS Referrals: Velasquez Dyer MD [Primary Care Provider] - In 1 week Problem List Clinical Impression: Seizure-like activity, Anxiety, Musculoskeletal pain, Hyperventilation Patient/Caregiver Discharge Instructions Education Materials: ED Anxiety Reaction, ED Myalgias, ED Seizure New Onset Unknown ... Print Language: Romansh Stand Alone Forms: Yelena Award Info., Patient Portal Info Letter
[2024-11-27] MEDS: LORazepam 2 MG/ML VIAL IVP ×2 (12:26→16:39)
--- NOTE | 2024-11-27 12:28 | PC.NURSE ---
Patient presents to ED via ambulance for seizure activity enroute. Patient called ems with c/o nausea and anxiety, took her own Valium 5mg but felt as it didn't help, so took a total of 4pills after. Per EMS, on arrival patient was GCS 15 and ambulated gurney. Patient with witnessed seizure activity by EMS, tonic/clonic, lasting about 30 sec x4 episodes. Patient on arrival to ED and placed on gurney, had active seizure witnessed by staff, lasting about 30sec again. MD at bedside.
[2024-11-27 12:29] VITALS: BP 136/73; PULSE 66; RESP 18; TEMP 36.4; O2SAT 100
--- NOTE | 2024-11-27 12:35 | EKG_ITS ---
[facility] Test Date: 2024-11-27 Pat Name: BETHEL TANNER Department: Room: - Gender: Female Customer Operations Specialist: : 1985 Requested By: Kareem Castle Order Number: [id number] Reading MD: Kareem Castle Measurements Intervals [place] Rate: 69 P: 49 FL: 133 QRS: 16 QRSD: 85 T: 0 QT: 398 QTc: 428 Interpretive Statements SINUS RHYTHM WITH SINUS ARRHYTHMIA NONSPECIFIC T-WAVE ABNORMALITY Compared to ECG 11/01/2024 18:57:25 Possible ischemia no longer present T-wave abnormality still present /store/S0/[id number].pdf
[2024-11-27 13:03] LABS: Basophils # (Auto) 0.1 Thou/mm3 (0.0-0.2); Basophils % (Auto) 0 % (0-2.5); Eosinophils % (Auto) 0 % (0-10); Hematocrit 42.2 % (36.0-46.0); Hemoglobin 14.7 g/dL (12.0-16.0); Immature Granulocytes % (Auto) 0 % (0-0); Immature Granulocytes Auto 0.06 Thou/mm3 (0.00-0.00); Lymphocytes # (Auto) 0.9 Thou/mm3 (1.0-4.8); Lymphocytes % (Auto) 6 % (10-50); Mean Corpuscular HGB Conc 34.8 g/dl (31.0-37.0); Mean Corpuscular Volume 95 fL (80-100); Monocytes # (Auto) 0.4 Thou/mm3 (0.0-0.8); Monocytes % (Auto) 3 % (0-12); Neutrophils # (Auto) 12.9 Thou/mm3 (1.8-7.7); Neutrophils % (Auto) 90 % (37-80); Nucleated Red Blood Cell % 0 /100 WBC (0); Platelet Count 359 Thou/mm3 (140-440); RDW Standard Deviation 43.8 fL (36.4-46.3); Red Blood Count 4.45 Miln/mm3 (4.00-5.20); White Blood Count 14.3 Thou/mm3 (3.6-11.0)
[2024-11-27 13:03] LABS: Collection Type, Urine Catheter
[2024-11-27 13:09] LABS: Bilirubin,Urine Negative (Negative); Blood,Urine Negative (Negative); Clarity,Urine Clear (Clear/Hazy); Color,Urine Lt-Yellow (Lt Yel-Yel); Glucose, Urine Negative (Negative); Ketones,Urine 4+ (Negative); Leukocyte Esterase,Urine Negative (Negative); Nitrite,Urine Negative (Negative); PH,Urine 8.5 (5.0-7.0); Protein,Urine Trace (Neg - Trace); RBC,Urine 9 /hpf (0-3); Squamous Epithelial Cell,Urine < 1 /hpf (0-5); WBC,Urine 1 /hpf (0-5)
[2024-11-27] MEDS: SODIUM CHLORIDE 0.9% 1000 ML 1,000 ML 999 ML IV (13:17)
[2024-11-27] MEDS: levETIRAcetam INJ 100 MG/ML VIAL 5ML 1000 MG IVP (13:22)
[2024-11-27 13:24] LABS: Amphetamine/Methamp Scrn,U Negative (Negative); Barbiturate Screen,Urine Negative (Negative); Benzodiazepines Screen,Urine Positive (Negative); Benzoylecgonine Screen, Ur Negative (Negative); Fentanyl Screen,Urine Negative (Negative); Opiate Screen,Urine Negative (Negative); THC Screen,Urine Positive (Negative)
[2024-11-27 14:00] VITALS: PULSE 103
[2024-11-27 14:01] VITALS: BP 138/83; PULSE 77; RESP 16; TEMP 36.4; O2SAT 95
[2024-11-27 14:01] LABS: Alanine Aminotransferase 17 U/L (10-49); Albumin, Serum 4.7 gm/dL (3.5-5.0); Albumin/Globulin Ratio 1.7 (1.2-2.2); Alkaline Phosphatase 114 U/L (46-116); Anion Gap 15 (7-16); Aspartate Amino Transferase < 8 U/L (0-34); BUN/Creatinine Ratio 13 Ratio (12-20); Bilirubin,Total 1.1 mg/dL (0.3-1.2); Blood Urea Nitrogen 10 mg/dL (9-23); Calcium 9.7 mg/dL (8.3-10.6); Calcium (Corrected) 9.7 mg/dL (8.5-10.1); Carbon Dioxide 17.5 mMol/L (20.0-31.0); Chloride 107 mMol/L (98-107); Creatinine (Component) 0.8 mg/dL (0.6-1.3); Estimated Creatinine Clearance 79.6 mL/min (>60); Globulin 2.7 gm/dL (2.3-3.5); Glucose 143 mg/dL (74-106); Magnesium 1.7 mg/dL (1.6-2.6); Osmolality,Calculated 278 (275-295); Potassium 3.3 mMol/L (3.4-5.1); Sodium 139 mMol/L (136-145); Total Protein 7.4 gm/dL (5.7-8.2); eGFR > 60 See Note
[2024-11-27] MEDS: ONDANSETRON INJ 2 MG/ML INJ 2 ML 4 MG IV (14:19)
[2024-11-27] MEDS: KETOROLAC INJ 30 MG/ML VIAL IVP (14:45)
[2024-11-27] MEDS: ACETAMINOPHEN IVPB 1,000 MG/100 ML VIAL 250 MG IV (16:36)
[2024-11-27] MEDS: POTASSIUM CHLORIDE 20 mEq TABCR 40 MEQ PO (16:37)
[2024-11-27 16:43] VITALS: BP 143/84; PULSE 93; RESP 18; TEMP 36.6; O2SAT 100
[2024-11-27 17:44] VITALS: BP 133/82; PULSE 80; RESP 18; TEMP 36.8; O2SAT 100
== END 2024-11-27 18:01 | disposition home or self-care (01) ==
PROVIDERS: Emergency Provider Family Medicine; PCP Family Medicine
DX: R56.9 Unspecified convulsions (principal); F41.9 Anxiety disorder, unspecified; M79.18 Myalgia, other site
CPT/HCPCS: 51701; 36415; 80053; 80307; 81001; 83735; 85025; 93005; 96361; 96365; 96375; 96376; 99284; J0131; J1885; J1953; J2060; J2405; J7030; A9270

== ENCOUNTER 2025-02-15 19:05 | Emergency (ER) | payer BC, SELFPAY ==
[2025-02-15 19:10] VITALS: BP 122/82; PULSE 88; RESP 18; RESP 6; TEMP 36.3; O2SAT 94; O2SAT 99
--- NOTE | 2025-02-15 19:10 | XR_ITS ---
Examination: AP chest single view Technique one AP portable semiupright chest single view Date and time: February 15, 2025 1926 hours Comparison April 27, 2023 INDICATIONS: Shortness of breath chest pain beginning 2 days ago. FINDINGS: Normal heart size. Lungs are clear. The osseous structures are intact IMPRESSION: No active disease
--- NOTE | 2025-02-15 19:10 | EKG_ITS ---
[facility] Test Date: 2025-02-15 Pat Name: BETHEL TANNER Department: Room: - Gender: Female Customer Marketing Intern: : 1985 Requested By: Reji Ramirez Order Number: [id number] Reading MD: Reji Ramirez Measurements Intervals [place] Rate: 73 P: 61 FL: 125 QRS: 31 QRSD: 87 T: 27 QT: 434 QTc: 481 Interpretive Statements SINUS RHYTHM WITH MARKED SINUS ARRHYTHMIA MODERATE T-WAVE ABNORMALITY, CONSIDER ANTERIOR ISCHEMIA [-0.1+ mV T-WAVE IN V3/V4] Compared to ECG 11/27/2024 12:39:07 Possible ischemia now present T-wave abnormality still present /store/S0/[id number].pdf
--- NOTE | 2025-02-15 19:10 | XR_ITS ---
Examination: CT brain head without contrast. 2-D sagittal coronal reconstructions Date and time of exam:February 15, 2025 2016 hours INDICATIONS: Seizure today followed by slurred speech CTDI: vol (mGy):46 DLP: (mGycm):916 Technique: Multiple CT axial sections of the brain have been obtained, 5 mm slice thickness. Contrast has not been administered. 2-D sagittal, coronal reconstructions have been obtained Low dose protocols were performed. One or more of the following dose reduction techniques were used; automated exposure control, adjustment of the mA and/or KV according to patient size, use of iterative reconstruction technique. Findings: No significant ventricular enlargement. Intra-axial or extra-axial hemorrhage density is not seen. No mass effect or midline shift Basal cisterns are not remarkable. Fourth ventricle is midline. Cranial vault intact. Impression: Negative for acute hemorrhage, mass effect or midline shift Consider brain MRI follow-up, pre and postcontrast, seizure protocol
--- NOTE | 2025-02-15 19:11 | PD.EDSEIZ ---
ED Seizures RME/HPI General Chief Complaint: Seizure Stated Complaint: SEIZURES Time Seen by Provider: 02/15/25 19:08 Arrival date/time: 02/15/25 19:05 RME / HPI RME / HPI Narrative: This section includes all my notes and documentations, including HPI, PE, and ED course. 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 EMS gave Narcan and Versed en route. No history of seizures. No alcohol use. No chronic benzodiazepine use. Reports abdominal pain and vomiting. No other complaints. ROS: All negative except as documented in HPI. Physical Exam: General: Alert and oriented. No acute distress. Eyes: Conjunctivae and lids clear. EOMI. PERRL. ENT: No nasal congestion. Neck: Supple. No carotid bruit. No JVD. Heart: RRR. Lungs: No respiratory distress. Good air movement. No rhonchi, wheezing, rales. Abdomen: Soft and nontender. Normal bowel sounds. No distension. No rebound or guarding. Back: No CVA tenderness. Legs: No clubbing, cyanosis, edema. Skin: Warm and dry. Neuro: Alert and oriented X 3. Cranial Nerves II-XII grossly intact. No peripheral motor deficits. I reviewed EMS notes. I reviewed all diagnostic test results: My interpretation of the EKG is: Sinus rhythm (73 bpm) with nonspecific ST-T changes.? My interpretation of the chest x-ray is: NAD. My review of the Chest/Abdomen/Pelvis CT report is: NAD. My review of the Head CT report is: NAD. My review of the US report is: NAD. Blood tests and urine test unremarkable. Covid/Influenza: Negative. At this point, diagnoses include: New onset seizure. Treatment here included: IV fluid, Zofran, Ativan, Keppra Patient remained stable. Recommended more outpatient workup. Based on my best medical judgment, made decision no further evaluation or treatment indicated at this time. Patient understands and agrees to the discharge instructions customized and printed, see below. Discharge Instructions from Dr. Yadav printed for you: 1. Fortunately, there is no life-threatening condition. Such as stroke or brain tumor or intracranial bleeding. 2. Take Keppra to prevent more seizures until cleared by a doctor taking care of you. 3. See a private doctor on 02/17/2025 for recheck and further care. Ask to review all test results and official radiology reports, to make sure you receive all necessary follow-ups and monitoring. Ask for more care in room instigation not available here in the ER, such as EEG (assessing electrical activity in the brain), MRI imaging of the brain, and referral to see neurologist. Avoid driving alone and standing/walking alone. 4. Seek immediate medical care with another seizure or with any concerns. Reji Yadav MD Related Data Home Medications ?Medication ?Instructions ?Recorded ?Confirmed escitalopram oxalate 10 mg tablet 20 mg PO QDAY 02/01/19 12/04/23 (Lexapro) bupropion HCl 150 mg 24 hr tablet, 150 mg PO QDAY 12/04/23 12/05/23 extended release dicyclomine 20 mg tablet 20 mg PO TID 12/04/23 12/04/23 Previous Rx's ?Medication ?Instructions ?Recorded pantoprazole 40 mg tablet,delayed 40 mg PO QDAY #30 tabs 12/05/23 release (Protonix) levetiracetam 500 mg tablet 500 mg PO BID #60 tabs 02/16/25 (Keppra) Allergies Allergy/AdvReac Type Severity Reaction Status Date / Time No Known Allergies Allergy Verified 11/27/24 12:27 Review of Systems Review of Systems Systems Reviewed: All systems reviewed, normal except as documented Past Medical History Past Medical History NEUROLOGIC: Positive Neurological Disorders, Migraine and Head Trauma CARDIAC: Positive Cardiac Disorders RESPIRATORY: Positive Pneumonia GASTROINTESTINAL: Positive Gastrointestinal Disorders and Gall Bladder Disease REPRODUCTIVE: Positive Endometriosis and Previous Pregnancies MUSCULOSKELETAL: Positive Musculoskeletal Disorders ENT: Positive Head Trauma PSYCHO/SOCIAL: Positive Depression, Anxiety and Depression OTHER HISTORY: Positive Hospitalization and Chicken Pox Family History FAMILY HISTORY: Positive Family Psychiatric Problems and Family Surgery Surgical History SURGICAL: Positive Tubal Ligation and Section Social History SUBSTANCE USE: marijuana ED Exam Narrative Physical exam: Refer to HPI Course Course Course Narrative: CXR is ordered for determining the etiology of shortness of breath. Quality Measures none Orders Category Date Time Status Bedside COVID-19 Antigen Test NOW Care 02/15/25 19:09 Active Bedside Influenza A&B Antigen Test NOW Care 02/15/25 19:09 Completed EKG (ED ONLY) *Do not use* NOW Care 02/15/25 19:10 Completed U[place]ia to [place] Routine Care 02/15/25 19:09 Ordered In and Out Catheter X1 Care 02/15/25 21:42 Completed Saline [Insert IV] NOW Care 02/15/25 19:09 Active Consult to Neurology / Tele-Neurology Routine Cons 02/15/25 23:[address] chest abdomen pelvis wo Stat Exams 02/15/25 19:[address] head/brain wo con Stat Exams 02/15/25 19:10 Completed EKG (ED Only) Stat Exams 02/15/25 19:10 Draft US gall bladder Stat Exams 02/15/25 19:58 Completed XR chest 1V portable Stat Exams 02/15/25 19:10 Completed ABG [Arterial Blood Gas] Stat Lab 02/15/25 20:55 Completed Acetaminophen Stat Lab 02/15/25 19:18 Completed Alcohol, Blood Medical Stat Lab 02/15/25 19:18 Completed Amylase Stat Lab 02/15/25 19:18 Completed BMP [Basic Metabolic Panel] Stat Lab 02/15/25 22:26 Completed Bilirubin,Direct Stat Lab 02/15/25 19:18 Completed Blood Culture (Lab) Stat Lab 02/15/25 19:18 Received CBC Stat Lab 02/15/25 19:18 Completed CK [Creatine Kinase] Stat Lab 02/15/25 19:18 Completed CMP [Comprehensive Metabolic Panel] Stat Lab 02/15/25 19:18 Completed CRP [C-Reactive Protein] Stat Lab 02/15/25 19:18 Completed Drug Screen,Urine Stat Lab 02/15/25 21:40 Completed ESR [Sed Rate (ESR)] Stat Lab 02/15/25 19:18 Completed Free T4 (Free Thyroxine) Stat Lab 02/15/25 19:18 Completed HCG Qualitative,Urine Stat Lab 02/15/25 21:40 Completed HCG,Qualitative Serum Stat Lab 02/15/25 19:18 Completed Lactate (Lactic Acid) Stat Lab 02/15/25 19:18 Completed Lactic Acid, 3 HR Stat Lab 02/15/25 22:26 Completed Lipase Stat Lab 02/15/25 19:18 Completed Magnesium Stat Lab 02/15/25 19:18 Completed PT [Prothrombin Time with INR] Stat Lab 02/15/25 19:18 Completed PTT [Partial Thromboplastin Time] Stat Lab 02/15/25 19:18 Completed Procalcitonin Stat Lab 02/15/25 19:18 Completed Salicylate Stat Lab 02/15/25 19:18 Completed TSH [Thyroid Stimulating Hormone] Stat Lab 02/15/25 19:18 Completed Troponin I Stat Lab 02/15/25 19:18 Completed UA, C/S IF [Urinalysis, C/S if Indicated] Stat Lab 02/15/25 21:40 Completed KCL 10% Liq UDC 15 ML Med 02/15/25 20:40 Discontinued 40 meq PO X1 ONE Ketorolac Inj [Toradol Inj] Med 02/15/25 19:58 Discontinued 30 mg IVP X1 ONE LORazepam [Ativan Inj] Med 02/15/25 19:04 Discontinued 2 mg .ROUTE .STK-MED ONE LORazepam [Ativan Inj] Med 02/15/25 19:08 Discontinued 2 mg IVP X1 ONE Ondansetron Inj [Zofran Inj] Med 02/15/25 19:09 Discontinued 4 mg IVP X1 ONE Sodium Chloride 0.9% 1000 ml [Ns] 1,000 ml Med 02/15/25 19:09 Discontinued IV 999 mls/hr Sodium Chloride 0.9% 1000 ml [Ns] 1,000 ml Med 02/15/25 20:40 Discontinued IV 999 mls/hr Sodium Chloride 0.9% 1000 ml [Ns] 1,000 ml Med 02/15/25 20:41 Discontinued IV 999 mls/hr levETIRAcetam INJ [Keppra Inj] Med 02/15/25 19:04 Discontinued 2,000 mg .ROUTE .STK-MED ONE levETIRAcetam INJ [Keppra Inj] Med 02/15/25 19:08 Discontinued 2,000 mg IVP X1 ONE Vital Signs Vital signs: Vital Signs Temperature 97.3 F 02/15/25 19:10 Pulse Rate 88 02/15/25 19:10 Respiratory Rate 18 02/15/25 19:10 Blood Pressure 122/82 02/15/25 19:10 Pulse Oximetry (%) 99 02/15/25 19:10 Oxygen Delivery Method Room Air 02/15/25 19:10 Seizure MDM Narrative MDM Narrative:: Scribe Attestation: ILeah, am scribing for and in the presence of Dr. Yadav. Provider Notation: Although this document has been carefully reviewed, there may still be some phonetic and other typographical errors.? These errors are purely grammatical due to imperfections in the software program and should not be construed in any way to? compromise the substance of the patient's medical care during this visit. 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 EMS gave Narcan and Versed en route. Patient has not seized since Narcan administration. No other complaints. Patient data External records reviewed:: [facility] previous records (Reviewed prior ED records from 11/27/24. Patient was seen for Anxiety.) and EMS form Clinical information provided by:: patient and EMS Social determinants that could affect healthcare access:: substance use (Marijuana) Patient has the following chronic illnesses:: Migraine, Gall Bladder Disease, Endometriosis, Depression, Anxiety How is presenting disease/condition affected by chronic disease/condition?: exacerbated by Evaluation data The following diagnostics were reviewed and interpreted by me:: lab results, radiology exam(s) and EKG tracing(s) (My interpretation of the EKG is: Sinus rhythm (73 bpm) with nonspecific ST-T changes. Reji Yadav MD) Lab and/or radiology exams considered but not ordered:: None Interpretation Summary: I reviewed all diagnostic test results: My interpretation of the EKG is: Sinus rhythm (73 bpm) with nonspecific ST-T changes.? My interpretation of the chest x-ray is: NAD. My review of the Chest/Abdomen/Pelvis CT report is: NAD. My review of the Head CT report is: NAD. My review of the US report is: NAD. Blood tests and urine test unremarkable. Covid/Influenza: Negative. Medications / Prescriptions Medications or Prescriptions considered but not ordered:: None Medication administrations:: Medication Administration History Discontinued Medications Sodium Chloride (Ns) 1,000 mls @ 999 mls/hr IV .Q1H1M ONE Stop: 02/15/25 20:09 Last Infusion: 02/15/25 20:16 Dose: Infused Documented By: Admin: 02/15/25 19:15 Dose: 999 mls/hr Documented By: ALEXANDRU Sodium Chloride (Ns) 1,000 mls @ 999 mls/hr IV .Q1H1M ONE Stop: 02/15/25 21:40 Last Infusion: 02/15/25 22:52 Dose: Infused Documented By: Admin: 02/15/25 21:51 Dose: 999 mls/hr Documented By: EF Sodium Chloride (Ns) 1,000 mls @ 999 mls/hr IV .Q1H1M ONE Stop: 02/15/25 21:41 Last Infusion: 02/15/25 21:51 Dose: Infused Documented By: Admin: 02/15/25 20:50 Dose: 999 mls/hr Documented By: BD Ketorolac Tromethamine (Ketorolac Inj 30 Mg/Ml Vial) 30 mg IVP X1 ONE Stop: 02/15/25 19:59 Last Admin: 02/15/25 20:12 Dose: 30 mg Documented By: BD Levetiracetam (Levetiracetam Inj 100 Mg/Ml Vial 5ml) 2,000 mg IVP X1 ONE Stop: 02/15/25 19:09 Last Admin: 02/15/25 19:15 Dose: 2,000 mg Documented By: ALEXANDRU Levetiracetam (Levetiracetam Inj 100 Mg/Ml Vial 5ml) Confirm Administered Dose 2,000 mg .ROUTE .STK-MED ONE Stop: 02/15/25 19:05 Last Admin: 02/15/25 19:11 Dose: Not Given Documented By: ALEXANDRU Non-Admin Reason: Override Medication Lorazepam (Lorazepam 2 Mg/Ml Vial) 2 mg IVP X1 ONE Stop: 02/15/25 19:09 Last Admin: 02/15/25 19:14 Dose: 2 mg Documented By: ALEXANDRU Lorazepam (Lorazepam 2 Mg/Ml Vial) Confirm Administered Dose 2 mg .ROUTE .STK-MED ONE Stop: 02/15/25 19:05 Last Admin: 02/15/25 19:11 Dose: Not Given Documented By: ALEXANDRU Non-Admin Reason: Override Medication Ondansetron HCl (Ondansetron Inj 2 Mg/Ml Inj 2 Ml) 4 mg IVP X1 ONE; Protocol Stop: 02/15/25 19:10 Last Admin: 02/15/25 19:16 Dose: 4 mg Documented By: ALEXANDRU Potassium Chloride (Potassium Chloride 10% 20 Meq/15 Ml Udc) 40 meq PO X1 ONE Stop: 02/15/25 20:41 Last Admin: 02/15/25 20:50 Dose: 40 meq Documented By: BD IV fluid, Zofran, Ativan, Keppra Consultations Consultation(s) initiated? (list below): No Diagnosis Seizure Differential Diagnosis: intractable seizure disorder, febrile convulsion, focal seizure, generalized seizure, new onset seizure, epileptic seizure and status epilepticus Most likely diagnosis given after review of the tests above:: New onset seizure of unclear etiology. Admission Indicated Admission indicated?: not indicated Explain why admission is indicated or not indicated:: With significant improvement, there was no indication for admission. Admission Request Was there a request for admission?: No Disposition Plan Disposition Plan: Discharge Discharge Attestation Discharge Attestation: The patient and all family members were given an opportunity to ask questions and understood the discharge instructions. Discharge instructions specifically effects, indications for sooner follow up or return to the emergency department, and the expected course of current diagnosis. Patient condition: Stable Discharge Plan Plan Patient Disposition: HOME (Self Care) Prescriptions/Referrals Prescriptions/Med Rec: New levetiracetam [Keppra] 500 mg tablet 500 mg PO BID Qty: 60 0RF No Action escitalopram oxalate [Lexapro] 10 mg Tablet 20 mg PO QDAY dicyclomine 20 mg tablet 20 mg PO TID Patient Comments: TAKE 1 TABLET BY MOUTH 3 TIMES A DAY BEFORE MEALS bupropion HCl 150 mg tablet extended release 24 hr 150 mg PO QDAY Patient Comments: TAKE 1 TABLET BY MOUTH EVERY DAY pantoprazole [Protonix] 40 mg Tablet,Delayed Release (Dr/Ec) 40 mg PO QDAY Qty: 30 2RF Rx Instructions: TAKE ONE TABLET ONCE DAILY FOR 30 DAYS Referrals: Velasquez Dyer MD [Primary Care Provider] - In 1 week Problem List Clinical Impression: New onset seizure Patient/Caregiver Discharge Instructions Discharge Activity: activity as tolerated Education Materials: ED Seizure New Onset Unknown ... Additional Instructions: Discharge Instructions from Dr. Yadav printed for you: 1. Fortunately, there is no life-threatening condition. Such as stroke or brain tumor or intracranial bleeding. 2. Take Keppra to prevent more seizures until cleared by a doctor taking care of you. 3. See a private doctor on 02/17/2025 for recheck and further care. Ask to review all test results and official radiology reports, to make sure you receive all necessary follow-ups and monitoring. Ask for more care in room instigation not available here in the ER, such as EEG (assessing electrical activity in the brain), MRI imaging of the brain, and referral to see neurologist. Avoid driving alone and standing/walking alone. 4. Seek immediate medical care with another seizure or with any concerns. Print Language: Japanese Stand Alone Forms: [facility]elena Award Info., Patient Portal Info Letter
[2025-02-15] MEDS: LORazepam 2 MG/ML VIAL IVP (19:14)
[2025-02-15] MEDS: SODIUM CHLORIDE 0.9% 1000 ML 1,000 ML 999 ML IV ×3 (19:15→21:51)
[2025-02-15] MEDS: levETIRAcetam INJ 100 MG/ML VIAL 5ML 2000 MG IVP (19:15)
[2025-02-15] MEDS: ONDANSETRON INJ 2 MG/ML INJ 2 ML 4 MG IVP (19:16)
[2025-02-15 19:29] LABS: Basophils % (Auto) 0 % (0-2.5); Eosinophils % (Auto) 0 % (0-10); Hematocrit 41.6 % (36.0-46.0); Hemoglobin 15.2 g/dL (12.0-16.0); Immature Granulocytes % (Auto) 1 % (0-0); Immature Granulocytes Auto 0.08 Thou/mm3 (0.00-0.00); Lymphocytes # (Auto) 0.8 Thou/mm3 (1.0-4.8); Lymphocytes % (Auto) 5 % (10-50); Mean Corpuscular HGB Conc 36.5 g/dl (31.0-37.0); Mean Corpuscular Hemoglobin 33.9 pg (25.0-35.0); Mean Corpuscular Volume 93 fL (80-100); Monocytes # (Auto) 0.4 Thou/mm3 (0.0-0.8); Monocytes % (Auto) 2 % (0-12); Neutrophils # (Auto) 15.9 Thou/mm3 (1.8-7.7); Neutrophils % (Auto) 92 % (37-80); Nucleated Red Blood Cell % 0 /100 WBC (0); Platelet Count 403 Thou/mm3 (140-440); RDW Standard Deviation 42.3 fL (36.4-46.3); Red Blood Count 4.49 Miln/mm3 (4.00-5.20); White Blood Count 17.2 Thou/mm3 (3.6-11.0)
[2025-02-15 19:30] LABS: Lactate (Lactic Acid) 7.3 mMol/L (0.4-2.0)
[2025-02-15 19:36] LABS: Sed Rate (ESR) 11 mm/hr (0-20)
[2025-02-15 19:40] LABS: HCG,Qualitative Serum Negative
[2025-02-15 19:50] LABS: INR 1.1 (0.9-1.3); Partial Thromboplastin Time 24.3 Seconds (22.0-36.0); Prothrombin Time 11.9 Seconds (9.0-12.2)
--- NOTE | 2025-02-15 19:58 | XR_ITS ---
Examination: Abdomen sonogram, Limited Date and time of exam: February 15, 2025, 2158 hours INDICATIONS: Abdominal pain and vomiting this week Technique: Real-time lópez scale transabdominal sonographic images of the upper abdomen obtained. Findings: Absent gallbladder Normal common bile duct circumference 4 cm Pancreatic head 2.3 cm There are 14.3 cm smooth contour Normal hepatopedal portal venous flow Patent IVC IMPRESSION: Normal common bile duct Normal liver
--- NOTE | 2025-02-15 19:58 | XR_ITS ---
Examination: CT chest, without intravenous contrast. CT abdomen, without intravenous contrast. CT pelvis, without intravenous contrast. 2-D sagittal and coronal reconstructions. 3-D reconstructions. Date and time of exam:February 15, 2025[address] abdomen and pelvis October 13, 2023 INDICATIONS: Generalized chest and abdominal pain today CTDI vol (mgy) 7 DLP (MGycm)506 Technique: Multiple CT images, 3.0 mm slice thickness, obtained chest, abdomen, pelvis, with the high-resolution 64 slice scanner.. Sagittal and coronal 2-D reconstructions are obtained. 3-D reconstructions Low dose protocols were performed. One or more of the following dose reduction techniques were used; automated exposure control, adjustment of the mA and/or KV according to patient size, use of iterative reconstruction technique. Findings: No thoracic aortic aneurysm dilatation Pulmonary artery segments are not enlarged. No paratracheal tracheobronchial or bronchopulmonary adenopathy No pneumonia, pulmonary edema or pleural disease No visualized liver or splenic lesion Absent gallbladder No intrahepatic biliary tract dilatation No pancreatic or adrenal mass No renal or ureteral calculi, no hydronephrosis Aorta normal size Normal appendix No bowel obstruction No diverticulitis Anteverted uterus, no adnexal mass Intact urinary bladder Mild disc narrowing L5-S1 IMPRESSION: No mediastinal lymphadenopathy. No pneumonia, pulmonary edema or pleural disease Negative for pancreatitis No renal or ureteral calculi, no hydronephrosis Normal appendix No bowel obstruction diverticulitis or free air
[2025-02-15] MEDS: KETOROLAC INJ 30 MG/ML VIAL IVP (20:12)
[2025-02-15 20:32] LABS: Free T4 (Free Thyroxine) 1.39 ng/dL (0.89-1.76); Thyroid Stimulating Hormone 1.17 uIU/mL (0.55-4.78); Troponin I < 0.002 ng/mL (0.0-0.045)
[2025-02-15 20:33] LABS: Acetaminophen < 2.0 mcg/mL (10.0-20.0); Alanine Aminotransferase 16 U/L (10-49); Albumin, Serum 5.2 gm/dL (3.5-5.0); Albumin/Globulin Ratio 2.1 (1.2-2.2); Alcohol, Blood Medical < 3.0 mg/dL (0-10.0); Alkaline Phosphatase 108 U/L (46-116); Anion Gap 21 (7-16); BUN/Creatinine Ratio 13 Ratio (12-20); Bilirubin,Direct 0.2 mg/dL (0.0-0.3); Bilirubin,Total 0.9 mg/dL (0.3-1.2); Blood Urea Nitrogen 12 mg/dL (9-23); Calcium 10.2 mg/dL (8.3-10.6); Calcium (Corrected) 10.2 mg/dL (8.5-10.1); Chloride 103 mMol/L (98-107); Creatine Kinase 307 U/L (34-171); Creatinine (Component) 0.9 mg/dL (0.6-1.3); Globulin 2.5 gm/dL (2.3-3.5); Glucose 122 mg/dL (74-106); Magnesium 1.6 mg/dL (1.6-2.6); Osmolality,Calculated 276 (275-295); Potassium 3.4 mMol/L (3.4-5.1); Salicylate 5.6 mg/dL; Sodium 138 mMol/L (136-145); Total Protein 7.7 gm/dL (5.7-8.2); eGFR > 60 See Note
[2025-02-15 20:35] LABS: Carbon Dioxide 13.6 mMol/L (20.0-31.0)
[2025-02-15 20:49] VITALS: BMI 21.2
[2025-02-15] MEDS: POTASSIUM CHLORIDE 10% 20 MEQ/15 ML UDC 40 MEQ PO (20:50)
[2025-02-15 20:59] LABS: Base Excess -4 (-3-3); HCO3 15 mEq/L (20-26); Inspired Oxygen, FIO2 28 %; O2 Saturation 99 % (91-98); PCO2 15 mmHg (32.0-48.0); PO2 159 mmHg (83-108); pH, Arterial 7.61 (7.35-7.45)
[2025-02-15 21:06] LABS: Allen Test Performed/OK; Puncture Site Right Radial
[2025-02-15 21:20] LABS: Amylase 46 U/L (30-118); Lipase 32 U/L (12-53)
[2025-02-15 21:27] LABS: C-Reactive Protein < 0.5 mg/dL (0.0-0.9); Procalcitonin 0.05 ng/ml (0.0-0.49)
[2025-02-15 21:50] LABS: Collection Type, Urine Clean Catch
[2025-02-15 22:11] LABS: Bacteria,Urine Rare; Bilirubin,Urine Negative (Negative); Blood,Urine 2+ (Negative); Clarity,Urine Turbid (Clear/Hazy); Color,Urine Lt-Yellow (Lt Yel-Yel); Culture Indicated,Urine Contaminated; Glucose, Urine Negative (Negative); Ketones,Urine 4+ (Negative); Leukocyte Esterase,Urine Negative (Negative); Nitrite,Urine Negative (Negative); Protein,Urine Trace (Neg - Trace); RBC,Urine 18 /hpf (0-3); Specific Gravity,Urine 1.024 (1.001-1.035); Squamous Epithelial Cell,Urine 24 /hpf (0-5); Urobilinogen,Urine Negative mg/dL (0.0-1.0); WBC,Urine 11 /hpf (0-5)
[2025-02-15 22:12] LABS: HCG Qualitative,Urine Negative
[2025-02-15 22:24] LABS: Reflex Lactate? Y
[2025-02-15 22:33] LABS: Amphetamine/Methamp Scrn,U Negative (Negative); Barbiturate Screen,Urine Negative (Negative); Benzodiazepines Screen,Urine Positive (Negative); Benzoylecgonine Screen, Ur Negative (Negative); Fentanyl Screen,Urine Negative (Negative); Opiate Screen,Urine Negative (Negative); THC Screen,Urine Positive (Negative)
[2025-02-15 22:37] LABS: Lactic Acid, 3 HR 2.9 mMol/L (0.4-2.0)
[2025-02-15 23:07] LABS: Anion Gap 15 (7-16); BUN/Creatinine Ratio 12 Ratio (12-20); Blood Urea Nitrogen 7 mg/dL (9-23); Carbon Dioxide 16.5 mMol/L (20.0-31.0); Chloride 113 mMol/L (98-107); Creatinine (Component) 0.6 mg/dL (0.6-1.3); Estimated Creatinine Clearance 105.2 mL/min (>60); Glucose 84 mg/dL (74-106); Osmolality,Calculated 283 (275-295); Potassium 3.5 mMol/L (3.4-5.1); Sodium 144 mMol/L (136-145); eGFR > 60 See Note
[2025-02-15 23:45] VITALS: BP 122/83; PULSE 96; RESP 16; TEMP 36.9; O2SAT 97
--- NOTE | 2025-02-16 00:58 | PC.NURSE ---
TELE ROUNDING CANCELED BY DR YARBROUGH.
[2025-02-16 01:00] VITALS: BP 145/89; PULSE 84; RESP 16; TEMP 36.9; O2SAT 100
[2025-02-16] MEDS: ONDANSETRON INJ 2 MG/ML INJ 2 ML 4 MG IVP (01:19)
== END 2025-02-16 01:27 | disposition home or self-care (01) ==
PROVIDERS: Emergency Provider Emergency Medicine; PCP Family Medicine
DX: R56.9 Unspecified convulsions (principal); R06.02 Shortness of breath; R07.9 Chest pain, unspecified; R47.81 Slurred speech; R10.9 Unspecified abdominal pain; R11.10 Vomiting, unspecified; I49.8 Other specified cardiac arrhythmias
CPT/HCPCS: 51701; 36415; 36600; 70450; 71045; 71250; 74176; 76705; 80048; 80053; 80307; 80320; 80329; 81001; 81025; 82150; 82248; 82550; 82803; 83605; 83690; 83735; 84145; 84439; 84443; 84484; 84703; 85025; 85610; 85652; 85730; 86140; 87040; 87400; 87811; 96361; 96374; 96375; 99284; J1885; J1953; J2060; J2405; J7030; A9270; G0480